=== PATIENT | female | born 1975 | race Caucasian/White ===

== ENCOUNTER 2022-06-25 18:39 | Emergency (ER) | payer BC ==
[2022-06-25 19:09] LABS: #Basophils 0.1 10x3/uL (0.0-0.2); #Eosinphils 0.2 10x3/uL (0.0-0.5); #Monocytes 1.1 10x3/uL (0.0-1.1); #Neutrophils 11.9 10x3/uL (1.5-8.4); %Basophils 0.8 % (0.0-2.0); %Lymphocytes 15.2 % (18.0-47.0); %Monocytes 7.1 % (0.0-10.0); %Neutrophils 75.3 % (40.0-75.0); Hemoglobin 14.1 g/dL (12.0-15.5); Mean Corpuscular HGB CONC 34.1 g/dL (32.0-36.0); Mean Corpuscular Hemoglobin 30.3 pg (27.0-33.0); Mean Platelet Volume 9.8 fl (7.4-10.4); Platelet Count 373 10x3/uL (150-450); Red Blood Cell (RBC) Count 4.65 10x6/uL (3.90-5.03); White Blood Cell (WBC) Count 15.8 10x3/uL (3.5-10.5)
[2022-06-25 19:21] LABS: ALT (SGPT) 18 U/L (8-55); AST (SGOT) 13 U/L (5-34); Albumin 4.3 g/dL (3.5-5.0); Alkaline Phosphatase 99 U/L (40-110); Anion Gap 16 mmol/L (10-20); BUN (Urea Nitrogen) 12 mg/dL (7.0-18.7); Bilirubin, Total 0.4 mg/dL (0.2-1.2); Calc. Creatinine Clearance 0 mL/min (70-130); Carbon Dioxide 22 mmol/L (22-29); Chloride 104 mmol/L (98-107); Estimated GFR 86; Globulin 2.9 g/dL (2.4-3.5); Glucose 129 mg/dL (70-105); Potassium 4.1 mmol/L (3.5-5.1); Protein, Total 7.2 g/dL (6.0-8.3); Sodium 138 mmol/L (136-145)
== END 2022-06-25 20:30 | disposition home or self-care (01) ==
LOC: CSHERS 18:39
DX: N93.8 Other specified abnormal uterine and vaginal bleeding (principal)
CPT/HCPCS: 80053; 85025; 86850; 86900; 86901; 99284

== ENCOUNTER 2022-09-14 08:28 | Day surgery (SDC) | payer BC ==
[2022-09-10 12:27] VITALS: BMI 32.5
[2022-09-13 16:28] LABS: Hemoglobin 11.7 g/dL (12.0-15.5); Mean Corpuscular HGB CONC 30.7 g/dL (32.0-36.0); Mean Corpuscular Hemoglobin 24.2 pg (27.0-33.0); Mean Corpuscular Volume 78.9 fl (81.6-98.3); Mean Platelet Volume 9.5 fl (7.4-10.4); Platelet Count 551 10x3/uL (150-450); RBC Distribution Width 15.5 % (11.5-14.5); Red Blood Cell (RBC) Count 4.83 10x6/uL (3.90-5.03); White Blood Cell (WBC) Count 16.6 10x3/uL (3.5-10.5)
[2022-09-13 16:40] LABS: BHCG - Serum Negative (NEGATIVE); Pregs Control Background? CLEAR/WHITE (CLR/WHITE); Pregs Control Bar Appear? YES (CONTROL BAR)
[~2022-09-14 08:28] MED LIST: Famotidine/PF 20 mg/2ml Vial ONE; Gabapentin 300 MG CAP ONE; Lidocaine 1% PF 5 ML VIAL ONE; PROPOFOL 20 ML ONE; Rocuronium Bromide 10 MG/ML (10ML VIAL) ONE
[2022-09-14] MEDS ORDERED: CeleCOXIB 100 MG CAP ONE (08:29)
[2022-09-14] MEDS ORDERED: metroNIDAZOLE 500 MG/100 ML BAG ONE (08:29)
[2022-09-14] MEDS ORDERED: Fentanyl 100 MCG/2 ML VIAL ONE (09:51)
[2022-09-14] MEDS ORDERED: Ketorolac Tromethamine 30 MG/ML VIAL ONE (09:52)
[2022-09-14] MEDS ORDERED: Dexamethasone 4 mg/ml Vial ONE (09:52)
[2022-09-14] MEDS ORDERED: Ondansetron PF 4 MG/2 ML Vial ONE (09:52)
[2022-09-14] MEDS ORDERED: Midazolam HCl 2 mg/2 ml Vial ONE (09:59)
[2022-09-14] MEDS ORDERED: CEFAZOLIN 2 GM VIAL ONE (10:24)
[2022-09-14] MEDS ORDERED: Fentanyl 250 MCG/5 ML VIAL ONE (11:20)
[2022-09-14] MEDS ORDERED: Glycopyrrolate 0.2 MG/ML 5 ML SYRINGE ONE (12:14)
[2022-09-14] MEDS ORDERED: Promethazine HCl 25 MG/ML VIAL ONE (12:27)
[2022-09-14] MEDS ORDERED: Estradiol 0.05mg/24 Hour Patch (Weekly) ONE (12:49)
[2022-09-14] MEDS ORDERED: HYDROcodone/Acetaminophen 5/325 mg Tablet ONE (15:00)
== END 2022-09-14 16:35 | disposition home or self-care (01) ==
LOC: CSHSDC 08:28
PROVIDERS: ATTEND Student in an Organized Health Care Education/Training Program
PROC: 0UT9FZZ Resection of Uterus, Via Natural or Artificial Opening With Percutaneous Endoscopic Assistance (ICD-10-PCS; principal; 2022-09-14)
PROC: 0UT7FZZ Resection of Bilateral Fallopian Tubes, Via Natural or Artificial Opening With Percutaneous Endoscopic Assistance (ICD-10-PCS; principal; 2022-09-14)
PROC: 0UT2FZZ Resection of Bilateral Ovaries, Via Natural or Artificial Opening With Percutaneous Endoscopic Assistance (ICD-10-PCS; principal; 2022-09-14)
DX: N80.03 Adenomyosis of the uterus (principal); N80.00 Endometriosis of the uterus, unspecified; D27.1 Benign neoplasm of left ovary; N93.9 Abnormal uterine and vaginal bleeding, unspecified; Z88.0 Allergy status to penicillin; Z79.899 Other long term (current) drug therapy
CPT/HCPCS: 84703; 85027; 86850; 86900; 86901; 88307; C1889; J1100; J1885; J2250; J2405; J2550; J2704; J3010; S0028